=== PATIENT | male | born 1945 | race Caucasian/White ===

== ENCOUNTER 2018-11-19 15:02 | Outpatient (REF) | payer MEDICARE, OTHER, SELFPAY ==
[2018-11-19 22:23] LABS: Anion Gap 8.7 mmol/L (3-11); BUN 24 mg/dL (7-18); CO2 30.3 mmol/L (21.0-32.0); CREATININE 1.11 mg/dL (0.70-1.30); Calcium 9.3 mg/dL (8.5-10.1); Chloride 102 mmol/L (98-107); Glucose 101 mg/dL (70-100); Potassium 4.7 mmol/L (3.5-5.1); Sodium 141 mmol/L (136-145)
== END 2018-11-19 15:22 ==
LOC: NCHCN 15:02
PROVIDERS: Visit Provider Internal Medicine
DX: J45.41 Moderate persistent asthma with (acute) exacerbation (principal); J44.9 Chronic obstructive pulmonary disease, unspecified; I10 Essential (primary) hypertension
CPT/HCPCS: 80048

== ENCOUNTER 2019-12-04 07:55 | Outpatient (REF) | payer MEDICARE, OTHER, SELFPAY ==
[2019-12-04 20:32] LABS: Anion Gap 7.2 mmol/L (3-11); BUN 26 mg/dL (7-18); CO2 29.8 mmol/L (21.0-32.0); CREATININE 1.14 mg/dL (0.70-1.30); Calcium 8.7 mg/dL (8.5-10.1); Calculated LDL 126 mg/dL; Chloride 105 mmol/L (98-107); Cholesterol 181 mg/dL (<200); Glucose 105 mg/dL (74-106); HDL Cholesterol 46 mg/dL (40-60); Potassium 4.3 mmol/L (3.5-5.1); Sodium 142 mmol/L (136-145); Triglyceride 45 mg/dL (<150)
== END 2019-12-04 08:15 ==
LOC: NCHCN 07:55
PROVIDERS: Visit Provider Internal Medicine
DX: I10 Essential (primary) hypertension (principal); Z13.6 Encounter for screening for cardiovascular disorders
CPT/HCPCS: 80048; 80061

== ENCOUNTER 2021-06-16 19:24 | Outpatient (REF) | payer MEDICARE, SELFPAY ==
[2021-06-16 19:57] LABS: Abs Immature Grans 0.02 10^3/uL (0.0-0.06); Absolute Basophil Count 0.05 10^3/uL (0.0-0.2); Absolute Monocyte Count 0.54 10^3/uL (0.1-0.8); Basophils % 0.7; HCT 40.8 % (40.0-50.0); HGB 13.6 g/dL (13.5-17.5); Immature Grans % 0.3; Lymphocytes % 25.3; MCH 30.5 pg (27.0-33.0); MCHC 33.3 % (32.0-36.0); MCV 91.5 fL (80-95); MPV 11.2 fL (8.0-11.0); Neutrophils % 62.7; Nucleated RBC 0 %; Platelet Count 196 10^3/uL (130-400); RBC 4.46 10^6/uL (4.36-5.78); RDW 13.4 % (11.8-14.1); RDW-SD 45.9 fL; WBC 6.71 10^3/uL (4.4-10.8)
[2021-06-16 20:22] LABS: ALT 29 U/L (16-63); AST 18 U/L (15-37); Albumin 3.9 g/dL (3.4-5.0); Alkaline Phosphatase 73 U/L (46-116); Anion Gap 8.2 mmol/L (3-11); BUN 27 mg/dL (7-18); Bilirubin, Total 0.6 mg/dL (0.2-1.0); CO2 27.8 mmol/L (21.0-32.0); CREATININE 1.2 mg/dL (0.70-1.30); Calcium 8.9 mg/dL (8.5-10.1); Chloride 107 mmol/L (98-107); Estimated GFR 58.71 (mL/min/1.73m2); Glucose 108 mg/dL (74-106); Potassium 3.6 mmol/L (3.5-5.1); Sodium 143 mmol/L (136-145); Total Protein 6.6 g/dL (6.4-8.2)
== END 2021-06-16 19:25 | disposition home or self-care (01) ==
LOC: NCHCN 19:24
PROVIDERS: Visit Provider Internal Medicine
DX: I10 Essential (primary) hypertension (principal); J44.9 Chronic obstructive pulmonary disease, unspecified; J45.40 Moderate persistent asthma, uncomplicated
CPT/HCPCS: 80053; 85025

== ENCOUNTER 2021-08-12 15:52 | Outpatient (REF) | payer MEDICARE, SELFPAY ==
[2021-08-13 14:04] LABS: COVID-19 RT-PCR UVMMC Result Negative (Negative)
== END 2021-08-12 15:53 | disposition home or self-care (01) ==
LOC: NCHCN 15:52
PROVIDERS: Visit Provider Registered Nurse
DX: Z20.822 Contact with and (suspected) exposure to COVID-19 (principal); R06.02 Shortness of breath
CPT/HCPCS: U0003

== ENCOUNTER 2022-03-08 11:14 | Outpatient (REF) | payer MEDICARE, SELFPAY ==
[2022-03-09 11:39] LABS: COVID-19 RT-PCR UVMMC Result Negative (Negative)
== END 2022-03-08 11:15 | disposition home or self-care (01) ==
LOC: NCHCN 11:14
PROVIDERS: Visit Provider Nurse Practitioner Family
DX: Z20.822 Contact with and (suspected) exposure to COVID-19 (principal); J45.41 Moderate persistent asthma with (acute) exacerbation
CPT/HCPCS: U0003; U0005

== ENCOUNTER 2022-12-10 11:48 | Outpatient (REF) | payer MEDICARE, OTHER, SELFPAY ==
[2022-12-10 14:50] LABS: BUN 26 mg/dL (7-18); Calculated LDL 125 mg/dL (<100); Chloride 107 mmol/L (98-107); Cholesterol 190 mg/dL (<200); Estimated GFR 77.04 (mL/min/1.73m2); Glucose 110 mg/dL (74-106); HDL Cholesterol 51 mg/dL (40-60); Potassium 4.5 mmol/L (3.5-5.1); Sodium 142 mmol/L (136-145); Triglyceride 71 mg/dL (<150)
== END 2022-12-10 11:49 | disposition home or self-care (01) ==
LOC: NCHCN 11:48
PROVIDERS: Visit Provider Internal Medicine
DX: I10 Essential (primary) hypertension (principal)
CPT/HCPCS: 80048; 80061

== ENCOUNTER 2024-03-16 18:04 | Outpatient (REF) | payer MEDICARE, OTHER, SELFPAY ==
[2024-03-16 21:25] LABS: HCT 42.9 % (40.0-50.0); HGB 14.3 g/dL (13.5-17.5); MCH 30.5 pg (27.0-33.0); MCHC 33.3 % (32.0-36.0); MCV 92 fL (80-95); MPV 11.1 fL (8.0-11.0); Platelet Count 169 10^3/uL (130-400); RBC 4.69 10^6/uL (4.36-5.78); RDW-SD 47.8 fL; WBC 4.82 10^3/uL (4.4-10.8)
[2024-03-16 21:59] LABS: ALT 34 U/L (16-63); AST 25 U/L (15-37); Albumin 4.2 g/dL (3.4-5.0); Alkaline Phosphatase 73 U/L (46-116); Anion Gap 8.7 mmol/L (3-11); BUN 28 mg/dL (7-18); Bilirubin, Total 0.4 mg/dL (0.2-1.0); CO2 30.3 mmol/L (21.0-32.0); CREATININE 1.1 mg/dL (0.70-1.30); Calcium 9.2 mg/dL (8.5-10.1); Chloride 108 mmol/L (98-107); Cholesterol 170 mg/dL (<200); Estimated GFR 67.86 (mL/min/1.73m2); Glucose 105 mg/dL (74-106); HDL Cholesterol 42 mg/dL (40-60); Potassium 4.3 mmol/L (3.5-5.1); Sodium 147 mmol/L (136-145)
[2024-03-16 22:16] LABS: Calculated LDL 107 mg/dL (<100); Triglyceride 108 mg/dL (<150)
== END 2024-03-16 18:05 | disposition home or self-care (01) ==
LOC: NCHCN 18:04
PROVIDERS: Visit Provider Internal Medicine
DX: I10 Essential (primary) hypertension (principal); E78.5 Hyperlipidemia, unspecified; J06.9 Acute upper respiratory infection, unspecified
CPT/HCPCS: 80053; 80061; 85027

== ENCOUNTER 2024-12-14 14:20 | Outpatient (REF) | payer MEDICARE, OTHER, SELFPAY ==
[2024-12-14 21:21] LABS: Anion Gap 5.6 mmol/L (3-11); BUN 24 mg/dL (7-18); CO2 30.4 mmol/L (21.0-32.0); Calcium 9.7 mg/dL (8.5-10.1); Calculated LDL 64 mg/dL (<100); Chloride 107 mmol/L (98-107); Cholesterol 132 mg/dL (<200); Estimated GFR 76.08 (mL/min/1.73m2); Glucose 102 mg/dL (74-106); HDL Cholesterol 56 mg/dL (40-60); Potassium 4.7 mmol/L (3.5-5.1); Sodium 143 mmol/L (136-145); Triglyceride 61 mg/dL (<150)
== END 2024-12-14 14:21 | disposition home or self-care (01) ==
LOC: NCHCN 14:20
PROVIDERS: Visit Provider Internal Medicine
DX: E78.5 Hyperlipidemia, unspecified (principal)
CPT/HCPCS: 80048; 80061

== ENCOUNTER 2025-10-22 13:02 | Day surgery (SDC) | payer MEDICARE, OTHER, SELFPAY ==
[2025-10-22 13:13] VITALS: BP 129/84; PULSE 71; RESP 18; TEMP 36.6; O2SAT 97
[2025-10-22] MEDS: Tropicam./Phenyleph. (1/2.5%) 5 ML BTL OD ×3 (13:23→13:30)
--- NOTE | 2025-10-22 13:29 | W.ANESPRE ---
General Info Date of Service Date Performed: 10/22/25 Height: 5 ft 8 in Weight: 90.5 kg Body Mass Index (BMI): 30.3 Surgical Procedure: Operation Date: 10/22/25 15:40 Proposed Procedure Side Surgeon p Cataract Extraction with IOL Implant w/Glaucoma Stent Right Talha Rodriguez MD Meds Allergies and Home Medications Allergies Allergy/AdvReac Type Severity Reaction Status Date / Time No Known Allergies Allergy Verified 10/22/25 13:21 Home Medication ?Medication ?Instructions ?Recorded albuterol sulfate 2.5 mg/3 mL 2.5 mg inhalation .[id number] PRN 10/19/25 (0.083 %) solution for nebulization albuterol sulfate 90 mcg/actuation 2 inh inhalation .[id number] PRN 10/19/25 aerosol inhaler (Ventolin HFA) atorvastatin 20 mg tablet (Lipitor) 20 mg PO QHS 10/19/25 fluticasone 250 mcg-salmeterol 50 1 inh inhalation BID PRN 10/19/25 mcg/dose blistr powdr for inhalation (Advair Diskus) losartan 100 1 tab PO DAILY 10/19/25 mg-hydrochlorothiazide 25 mg tablet (Hyzaar) mometasone-formoterol HFA 200 2 inh inhalation BID 10/19/25 mcg-5 mcg/actuation aerosol inhaler (Dulera) montelukast 10 mg tablet 10 mg PO DAILY 10/19/25 Current Visit Medications: Current Medications Generic Name Dose Route Start Last Admin Trade Name Freq PRN Reason Stop Dose Admin Miscellaneous Medication 0 ml 10/22/25 06:00 Prednisolone 1%, Moxifloxacin 0.5%, Bromfenac 0.09% 5.6ml Btl OD 11/21/25 05:59 DIRECTED [facility] Miscellaneous Medication 0 ml 10/22/25 06:00 Tropicam./Phenyleph. (1/2.5%) 5 Ml Btl OD 11/21/25 05:59 DIRECTED [facility] Tetracaine HCl 0 ml 10/22/25 06:00 Tetracaine 0.5% 4 Ml Btl OD 11/21/25 05:59 DIRECTED [facility] PFSH Active Problems Active Problems: Problem Status Onset Code Cortical age-related cataract, right eye Acute H25.011 Nuclear age-related cataract, right eye Acute H25.11 Primary open angle glaucoma (POAG) of right eye, mild stage Acute H40.1111 Medical History Medical History Exertional chest pain Pt. states this was related to his asthma Exposure to Agent [place] Prediabetes Allergic rhinitis Hyperlipemia HTN (hypertension) Asthma Surgical History Surgical History H/O eye surgery 1985 Tobacco Smoking/Tobacco Use Status: Never Alcohol Alcohol Intake: current Alcohol intake frequency: a few times a month Alcohol type: beer Substance Use Substance use: Never Substance use type: does not use Vital Signs and Lab Results Vital Signs Most Recent Vital Signs in EMR: Most Recent Vital Signs Temp Pulse Resp BP Pulse Ox 36.6 C 71 18 129/84 97 10/22/25 13:13 10/22/25 13:13 10/22/25 13:13 10/22/25 13:13 10/22/25 13:13 Anesthesia Assessment and Plan Anesthesia History Personal History: No History of Anesthesia Complications Family History: No Family History of Anesthesia Complications Exercise Tolerance Exercise Tolerance: Metabolic Equivalents>4 Pertinent Negatives Pertinent Negatives: No Symptoms of GERD Cardiac & Pulmonary Exam Cardiac Exam: Normal S1/S2 Heart Sounds Pulmonary Exam: Clear Bilateral Breath Sounds Implantable Cardiac Device Does patient have a Pacemaker or an ICD?: No Airway Exam Known Difficult Airway: No Mallampati Class: 2 Mouth Opening: Normal (> 3cm) Thyromental Distance: Greater than 3 cm Neck Range of Motion: Full ROM Neck Circumference: Normal Teeth Condition: Normal Dentition ASA Classification ASA Score: ASA 2 Emergency Case?: No NPO Status NPO Status: NPO Clears >2 hours, Solids >8 hours Anesthesia Plan Resuscitation Status: Full Code Anesthesia Technique: General Anesthesia Airway Planned: Natural Airway Monitors Used: Standard Monitors
[2025-10-22 13:31] VITALS: BMI 30.3
[2025-10-22] MEDS: Duovisc Viscoelastic System EACH 1 EACH (13:54)
[2025-10-22] MEDS: Lidocaine 1% Pres-Free 5 ML VIAL (13:54)
[2025-10-22] MEDS: Moxifloxacin-PF 1 MG/ML VIAL (13:55)
[2025-10-22] MEDS: Phenylephrine/Lidocaine (15/10) MG/ML 1 ML VIAL (13:55)
[2025-10-22] MEDS: Prednisolone 1%, Moxifloxacin 0.5%, Bromfenac 0.09% 5.6ML BTL OD (13:56)
[2025-10-22] MEDS: Povidone-Iodine Ophth 30 ML BTL (13:56)
[2025-10-22] MEDS: Tetracaine 0.5% 4 ML BTL OD (13:57)
[2025-10-22] MEDS: Hyaluronate Sodium 0.85 ML SYR (14:07)
--- NOTE | 2025-10-22 14:32 | W.PM.DSUDISC ---
Date of service: 10/22/25 Discharge Plan Disposition Patient Disposition: Home Discharge Details Attending Provider: Talha Rodriguez Primary Care Provider: Unknown,Unknown Home Meds and New Rx's Prescriptions: No Action albuterol sulfate 2.5 mg /3 mL (0.083 %) solution for nebulization 2.5 mg inhalation .[id number] PRN albuterol sulfate [Ventolin HFA] 90 mcg/actuation HFA aerosol inhaler 2 inh inhalation .[id number] PRN Rx Instructions: 1-2 inhaled every 4-6 hours PRN; atorvastatin [Lipitor] 20 mg tablet 20 mg PO QHS Dulera 200-5 mcg/actuation HFA aerosol inhaler 2 inh inhalation BID fluticasone propion-salmeterol [Advair Diskus] 250-50 mcg/dose blister with device 1 inh inhalation BID PRN losartan-hydrochlorothiazide [Hyzaar] 100-25 mg tablet 1 tab PO DAILY montelukast 10 mg tablet 10 mg PO DAILY Discharge Instructions Stand Alone Forms: [facility] Post-Op Cataract, [facility] ([facility]), Portal Information Discharge Orders Discharge Orders: Discharge Order (Routine); Ordered 10/22/25 Ordered By: Talha Rodriguez DS: Diagnosis Discharge Diagnosis (1) Cortical age-related cataract, right eye: Status: Resolved (2) Nuclear age-related cataract, right eye: Status: Resolved (3) Primary open angle glaucoma (POAG) of right eye, mild stage: Status: Chronic
--- NOTE | 2025-10-22 14:33 | W.PM.OP ---
Operative Note Operative Note PRE-OP DIAGNOSIS: Nuclear/cortical cataract, right eye Primary open-angle glaucoma, mild stage, right eye PROCEDURE: Cataract extraction using phacoemulsification with intraocular lens implant, right eye Canaloplasty inferior 180 degrees, right eye Goniotomy 90 degrees, inferiorly, right eye SURGEON: Talha Rodriguez ANESTHESIA TYPE: Local By Surgeon and MAC Refer to Anesthesia Record ESTIMATED BLOOD LOSS: 0 PATHOLOGY: none sent COMPLICATIONS: None Patient was transported to: same day Patient's condition: stable Implants: Bandar Clareon [id number] Indications: Visually significant cataract, right eye Primary open angle glaucoma, mild stage, right eye Procedure Description: PRE-OPERATIVE DIAGNOSIS: 1. Nuclear/cortical cataract, right eye 2. Primary open-angle glaucoma, right eye, mild stage POST OPERATIVE DIAGNOSIS: Same OPERATION: 1. Cataract extraction using phacoemulsification with posterior chamber lens implantation, right eye 2. Canaloplasty, inferior 180 degrees, right eye 3. Goniotomy, [id number] degrees, right eye IOL: IOL Financial Service Rep/Model: Bandar Clareon [id number] IOL Power: +21.0 diopters IOL Serial Number: [id number] Optic Diameter: 6.0mm Haptic/Overall Diameter: 13.0mm PHACO INFO: Bandar Grab Mediaurion Vision System with OZil and Active Fluidics Cumulative Dispersed Energy (CDE): 8.86 seconds SURGEON: Talha Rodirguez MD MBA ANESTHESIA: Monitored Anesthesia Care (MAC) with local sub-tenon's anesthetic infiltration SPECIMENS: None COMPLICATIONS: None INDICATIONS FOR PROCEDURE: The patient is an 79-year-old male with history of progressive decreased vision in his right eye secondary to the development of nuclear/cortical cataract. The option of cataract surgery was offered to the patient and he wished to proceed. He has previously undergone cataract surgery in the left eye. He has a history of primary open-angle glaucoma of the right eye, mild stage, controlled with 1 medication. The option of minimally invasive glaucoma surgery at the time of cataract surgery was also offered to the patient and he wished to proceed with this as well. See office notes for detailed information. PROCEDURE: The correct surgical eye was identified and marked in the pupil was dilated the preoperative area using mydriatics and cycloplegics. The patient elected to proceed without oral sedation. The dilated pupil size was 6.5mm. The patient was brought to the operating room where cardiopulmonary monitoring was instituted and surgical timeout was performed, confirming the correct operative eye and intraocular lens power. Topical anesthesia was administered and ophthalmic povidone iodine 5% was instilled into the conjunctival fornices. The periocular area was prepped with Betadine 10% solution and draped in the usual sterile fashion for intraocular surgery. An adhesive aperture eye drape was placed. A Tegaderm, cut in half, was used to sequester the upper and lower lid margins and lashes from the operative field. A lid speculum was placed between the lids of the operative eye and the operating microscope was swung into place. Milli scissors were then used to make a conjunctival buttonhole approximately 6 mm posterior to the limbus in the inferonasal quadrant. Blunt dissection was used to expose bare sclera, and a blunt Sub-Tenon's anesthesia cannula was introduced and passed posteriorly along the globe where non-preserved plain lidocaine was injected into posterior Sub-Tenon space. A 1mm double-bevel sideport knife was used to create a paracentesis port. Intraocular phenylephrine/lidocaine was injected into the anterior chamber. Viscoelastic was then used to fill the anterior chamber. A keratome knife was used to create a 2-plane clear corneal tunnel extending about 2.0 mm into clear cornea. A flap was raised on the anterior capsule and capsulorhexis forceps were used to complete a continuous curvilinear capsulorhexis of 4.8 mm. Balanced salt solution was then used to perform cortical cleaving hydrodissection and nuclear hydrodelineation until the lens could be freely rotated within the capsular bag. The lens nucleus was then disassembled and removed within the capsular bag and iris plane using phacoemulsification. Residual cortical material was removed using the disposable silicone soft-tip Capsule-Guard I/A handpiece. The posterior capsule was carefully polished to remove as much residual lens epithelial cells as safely possible. The capsular bag was then inflated and the anterior chamber deepened with cohesive viscoelastic. The lens implant described above was inserted into the capsular bag using the Bandar AutonoMe injector. A Kuglen hook was used to dial the IOL into position. Additional cohesive viscoelastic was then used to slightly over fill the anterior chamber and widen the chamber angle. The patient's head and microscope were then tilted into the appropriate position for viewing of the anterior chamber angle structures. Viscoelastic was placed on the cornea followed by a surgical gonioprism. The OMNI device was introduced into the anterior chamber and the tip was used to velasco the trabecular meshwork at the 3 o'clock position. The microcatheter was deployed into Schlemm's canal in a clockwise fashion for 180 degrees, then retracted in a controlled fashion while extruding viscoelastic. The device was used to complete an inferior 180 degrees/six contiguous clock hours of viscodilation of Schlemm's canal. The device was redeployed into Schlemm's canal and then externalized into the anterior chamber to perform a total of inferiornasal 90 degrees of contiguous goniotomy. The patient's head and microscope were then returned to the normal coaxial position. Residual viscoelastic was then removed using the I/A handpiece and the IOL was rotated to achieve the best possible centration. The anterior chamber was reformed using BSS and the incisions were stromally hydrated. The lens implant was noted to center nicely within the capsular bag. At the conclusion of the procedure, 0.5 mL of moxifloxacin 1 mg/mL were injected into the capsular bag and anterior chamber. The incisions were checked with a Weck spear and found to be secure. Ophthalmic povidone iodine 5% was then applied to the eye followed by 2 drops of combination topical antibiotic/steroid/NSAID. A clear plastic eye shield was placed on the eye. The patient was then brought to the recovery room in stable condition. Date of Procedure: 10/22/25
[2025-10-22 14:34] VITALS: BP 145/88; PULSE 60; RESP 14; TEMP 36.6; O2SAT 95
--- NOTE | 2025-10-22 14:49 | W.ANESPOSTOP ---
Postoperative Evaluation Date, Time and Location Date Performed: 10/22/25 Time Performed: 14:44 Patient Location: Day Surgery Unit Vital Signs Most Recent Imported Vital Signs: Most Recent Vital Signs Temp Pulse Resp BP Pulse Ox 36.6 C 60 14 145/88 H 95 10/22/25 14:34 10/22/25 14:34 10/22/25 14:34 10/22/25 14:34 10/22/25 14:34 Pain Score Most Recent Pain Score: Most Recent Pain Score Pain Level 0 10/22/25 14:34 Assessment Mental Status: Awake (Alert & Oriented to Patient Baseline) Airway and Respiratory Function: Patent airway with normal (patient baseline) respiratory exam Cardiovascular Function: Hemodynamically Stable Hydration Status: Adequately Hydrated Nausea & Vomiting: No Nausea or Vomiting Pain: Pt. Denies Any Pain Peripheral Nerve Block: Patient did not receive a nerve block
== END 2025-10-22 14:54 | disposition home or self-care (01) ==
LOC: SUR 13:05
PROVIDERS: Visit Provider Ophthalmology
PROC: (CPT 66174; principal; 2025-10-22 15:30)
DX: H25.011 Cortical age-related cataract, right eye (principal); H25.11 Age-related nuclear cataract, right eye; H40.1111 Primary open-angle glaucoma, right eye, mild stage
CPT/HCPCS: 66174; 66984; 00123; V2632; J2003; J7325